=== PATIENT | male | born 1950 | race Caucasian/White ===

== ENCOUNTER → 2016-12-13 | Outpatient (CLI) | payer OTHER ==
[2016-12-13 10:12] LABS: BASO # 0.2 K/mm3 (0.0-0.2); BASO % 2.3 % (0.0-1.0); EOS # 0.4 K/mm3 (0.0-0.50); EOS % 5.1 % (0.0-3.0); LARGE UNSTAINED CELL # 0.2 K/mm3 (0.0-0.4); LARGE UNSTAINED CELL % 2.5 % (0.0-4.0); LYMPH # 3.1 K/mm3 (1.5-4.5); LYMPH % 33.2 % (24.0-44.0); MEAN CORPUSCULAR HEMOGLOBIN 31.6 pg (27.0-33.0); MEAN CORPUSCULAR HGB CONC 33.9 g/dl (32.0-36.5); MEAN CORPUSCULAR VOLUME 93.3 fl (80.0-96.0); MONO # 0.6 K/mm3 (0.0-0.8); MONO % 6.8 % (0.0-5.0); NEUTROPHILS # 4.4 K/mm3 (1.8-7.7); NEUTROPHILS % 50.2 % (36.0-66.0); PLATELET COUNT, AUTOMATED 289 k/mm3 (150-450); RED CELL DISTRIBUTION WIDTH 13.1 % (11.5-14.5); WHITE BLOOD COUNT 8.8 K/mm3 (4.0-10.0)
[2016-12-13 10:34] LABS: ALBUMIN 4.7 GM/DL (3.2-5.2); ALBUMIN/GLOBULIN RATIO 1.74 (1.00-1.93); ALKALINE PHOSPHATASE 111 U/L (45-117); ALT/SGPT 31 U/L (12-78); ANION GAP 8 MEQ/L (8-16); AST/SGOT 20 U/L (15-37); BILIRUBIN,TOTAL 0.5 MG/DL (0.2-1.0); BLOOD UREA NITROGEN 17 MG/DL (7-18); CALCIUM LEVEL 9.4 MG/DL (8.8-10.2); CARBON DIOXIDE LEVEL 24 MEQ/L (21-32); CHLORIDE LEVEL 104 MEQ/L (98-107); CREATININE FOR GFR 0.84 MG/DL (0.70-1.30); GLOMERULAR FILTRATION RATE > 60.0 (>49); GLUCOSE, FASTING 88 MG/DL (80-110); PERCENT SATURATION 39.9 % (19.7-37.4); POTASSIUM SERUM 4.7 MEQ/L (3.5-5.1); SODIUM LEVEL 136 MEQ/L (136-145); TOTAL IRON BINDING CAPACITY 376 UG/DL (250-450); TOTAL PROTEIN 7.4 GM/DL (6.4-8.2)
[2016-12-13 10:36] LABS: ERYTHROCYTE SEDIMENTATION RATE 4 mm/hr (0-20)
[2016-12-13 14:36] LABS: RBC ADVIA BF 0; RBC CALC. BF < 10000 (< 10mm3 cells/uL); WBC ADVIA BF 0.2; WBC CALC. BF 200 cells/uL (0-20)
[2016-12-13 14:37] LABS: BF DIFF IF INDICATED? YES (NO); SYNOVIAL FLUID COLOR PALE YELLOW (YELLOW)
[2016-12-13 15:59] LABS: CC BF DIFF EXAM CYTOCENTRIFUGE; CRYSTALS, BODY FLUID NONE SEEN (NONE SEEN)
--- NOTE | 2016-12-14 03:21 | REP ---
Clinical: Arthritis. Pain. Technique: AP, lateral, bilateral oblique views of the right and left foot. Findings: Age-related osteopenia and degenerative changes are appreciated. Osteoarthritic degenerative changes at the interphalangeal joints including subchondral sclerosis with mild joint space narrowing and marginal spurring (left greater than right). The right first metatarsophalangeal joint demonstrates similar increase sclerosis with marginal spurring and joint space narrowing. The left first metatarsophalangeal joint demonstrates advanced changes including osteophytosis, periarticular calcifications, subchondral sclerosis and moderate joint space obliteration / destructive changes. There is moderate bilateral hammertoe deformity of the second through fourth toes. Age-related hindfoot and midfoot changes noted as well. Impression: Osteoarthritic degenerative changes primarily involving the left first metatarsophalangeal joint and bilateral interphalangeal joints. Signed by Aydin Baugh MD 12/14/2016 03:12 A
--- NOTE | 2016-12-14 03:28 | REP ---
Clinical: Arthritis. Pain. Technique: AP, lateral, bilateral oblique views of the right and left wrist. Findings: Age-related degenerative changes include subtle cortical irregularity with areas of joint space narrowing as well as subtle increase sclerosis along the radiocarpal joint space. No significant periarticular erosive changes, loose bodies, or soft tissue swelling appreciated. Impression: Moderate age-related osteoarthritic changes suggested. Signed by Aydin Baugh MD 12/14/2016 03:19 A
--- NOTE | 2016-12-14 03:32 | REP ---
Clinical: Pain. Technique: Internal rotation, external rotation, and Y view of the left shoulder. Findings: Moderate degenerative changes include cortical irregularity and spurring at the acromioclavicular joint as well as blunting and subtle heterogeneity to the glenoid rim and humeral head. Small periarticular calcifications are identified superior to the glenoid. No acute fracture or dislocation. Impression: Moderate arthritic degenerative changes including calcific tendinopathy suggested. Signed by Aydin Baugh MD 12/14/2016 03:24 A
--- NOTE | 2016-12-14 03:34 | REP ---
Clinical: Pain. Technique: AP and frog lateral views. Findings: Early advanced arthritic degenerative changes include cortical irregularity as well as osteophyte formation involving the femoral head. Underlying increase sclerosis and heterogeneity involving the acetabulum and subchondral femoral head noted as well as subtle spurring along the superior margin of the acetabular rim. No acute fracture or dislocation. No periarticular calcifications. Impression: Early advanced arthritic degenerative changes. Signed by Aydin Baugh MD 12/14/2016 03:25 A
--- NOTE | 2016-12-14 03:37 | REP ---
Clinical: Arthritis. Pain. Technique: AP, lateral, bilateral oblique views of the right and left hand. Findings: Age-related osteopenia is appreciated along with mild relatively symmetric osteoarthritic degenerative changes. Findings include subchondral sclerosis and joint space narrowing involving the interphalangeal joints and most notably at the first interphalangeal joint (right greater than left). Degenerative changes to the first carpometacarpal and metacarpophalangeal joints also appreciated and include increase sclerosis and joint space narrowing with subtle cortical irregularity. Impression: Relatively symmetric mild osteoarthritic degenerative changes noted bilaterally. Signed by Aydin Baugh MD 12/14/2016 03:28 A
--- NOTE | 2016-12-14 03:41 | REP ---
Clinical: Pain. Technique: Single AP weightbearing view to the right and left knee. Findings: Moderate right and early advanced left osteoarthritic degenerative changes are appreciated. Right knee demonstrates medial joint space narrowing with subchondral sclerosis to the tibial surface as well as mild chondrocalcinosis and subtle cortical irregularity to the femoral condyles. Left knee demonstrates subchondral heterogeneity and subtle cystic changes as well as joint space narrowing primarily involving the medial compartment with marginal early osteophyte formation at the lateral femoral condyle and medial / lateral proximal tibia as well as chondrocalcinosis and blunting to the tibial spines. Impression: Moderate right and early advanced left osteoarthritic degenerative changes. Signed by Aydin Baugh MD 12/14/2016 03:32 A
[2016-12-15 00:06] LABS: Lyme Disease IgG/IgM Antibodie <0.91 ISR (0.00-0.90); Lyme Disease IgM Ab Quantitati <0.80 index (0.00-0.79)
== END ==
LOC: M LAB 09:12
PROVIDERS: ATTEND Internal Medicine Rheumatology
DX: M17.0 Bilateral primary osteoarthritis of knee (principal); M16.0 Bilateral primary osteoarthritis of hip; M72.2 Plantar fascial fibromatosis; M35.9 Systemic involvement of connective tissue, unspecified; E83.110 Hereditary hemochromatosis; N18.3 Chronic kidney disease, stage 3 (moderate); Z79.899 Other long term (current) drug therapy; M17.12 Unilateral primary osteoarthritis, left knee

== ENCOUNTER 2017-07-06 07:55 | Outpatient (CLI) | payer OTHER ==
[~2017-07-06] VITALS: Ht 177.8 cm; Wt 79.4 kg
[~2017-07-06 07:55] MED LIST: ALEV220T26 PO; FISH1000 PO; OMEP40CA2 PO
[2017-07-06] MEDS ORDERED: NS 1,000 ML IV ONE (08:30)
[2017-07-06] MEDS ORDERED: LIDOCAINE 2% INJ 100 MG/5 ML SDV (FOR ANES.) As Ordered ONE (08:31)
[2017-07-06] MEDS ORDERED: PROPOFOL 200 MG/20 ML VIAL As Ordered ONE (08:31)
--- NOTE | 2017-07-06 09:20 | ROOR ---
Patient Name: Thomas Marx Procedure Date: 07/06/2017 8:54 AM Date of : 1950 Age: 67 Room: [facility] Gender: Male Note Status: Finalized Procedure: Upper GI endoscopy Indications: Epigastric abdominal pain Providers: Reji Guerrero Jr, MD Referring MD: FREDI IVORY MD Requesting Provider: Medicines: Propofol per Anesthesia Complications: No immediate complications. Procedure: Pre-Anesthesia Assessment: - Prior to the procedure, a History and Physical was performed, and patient medications and allergies were reviewed. The patient is competent. The risks and benefits of the procedure and the sedation options and risks were discussed with the patient. All questions were answered and informed consent was obtained. Patient identification and proposed procedure were verified by the physician and the nurse in the pre-procedure area and in the procedure room. Mental Status Examination: alert and oriented. Airway Examination: normal oropharyngeal airway and neck mobility. Respiratory Examination: clear to auscultation. CV Examination: normal. ASA Grade Assessment: II - A patient with mild systemic disease. After reviewing the risks and benefits, the patient was deemed in satisfactory condition to undergo the procedure. The anesthesia plan was to use moderate sedation / analgesia (conscious sedation). Immediately prior to administration of medications, the patient was re-assessed for adequacy to receive sedatives. The heart rate, respiratory rate, oxygen saturations, blood pressure, adequacy of pulmonary ventilation, and response to care were monitored throughout the procedure. The physical status of the patient was re-assessed after the procedure. The Endoscope was introduced through the mouth, and advanced to the second part of duodenum. The upper GI endoscopy was accomplished without difficulty. The patient tolerated the procedure well. Findings: The upper third of the esophagus, middle third of the esophagus and lower third of the esophagus were normal. Non-severe esophagitis was found at the gastroesophageal junction. Biopsies were taken with a cold forceps for histology. The cardia, gastric fundus and gastric body were normal. Diffuse moderate inflammation characterized by erythema, friability and granularity was found in the gastric antrum and in the prepyloric region of the stomach. Biopsies were taken with a cold forceps for histology. The second portion of the duodenum was normal. Patchy mild inflammation characterized by erythema and friability was found in the duodenal bulb. Impression: - Normal upper third of esophagus, middle third of esophagus and lower third of esophagus. - Non-severe reflux esophagitis. Biopsied. - Normal cardia, gastric fundus and gastric body. - Gastritis. Biopsied. - Normal second portion of the duodenum. - Duodenitis. Recommendation: - Discharge patient to home (ambulatory). - Return to my office in 1 month. Reji Guerrero MD Reji Guerrero Jr, MD 07/06/2017 9:19:40 AM This report has been signed electronically. Number of Addenda: 0 Note Initiated On: 07/06/2017 8:54 AM Estimated Blood Loss: Estimated blood loss: none.
--- NOTE | 2017-07-06 09:22 | ROOR ---
Patient Name: Thomas Marx Procedure Date: 07/06/2017 8:56 AM Date of : 1950 Age: 67 Room: [facility] Gender: Male Note Status: Finalized Procedure: Colonoscopy Indications: High risk colon cancer surveillance: Personal history of colonic polyps Providers: Reji Guerrero Jr, MD Referring MD: FREDI IVORY MD Requesting Provider: Medicines: Propofol per Anesthesia Complications: No immediate complications. Procedure: Pre-Anesthesia Assessment: - Prior to the procedure, a History and Physical was performed, and patient medications and allergies were reviewed. The patient is competent. The risks and benefits of the procedure and the sedation options and risks were discussed with the patient. All questions were answered and informed consent was obtained. Patient identification and proposed procedure were verified by the physician and the nurse in the pre-procedure area and in the procedure room. Mental Status Examination: alert and oriented. Airway Examination: normal oropharyngeal airway and neck mobility. Respiratory Examination: clear to auscultation. CV Examination: normal. ASA Grade Assessment: II - A patient with mild systemic disease. After reviewing the risks and benefits, the patient was deemed in satisfactory condition to undergo the procedure. The anesthesia plan was to use moderate sedation / analgesia (conscious sedation). Immediately prior to administration of medications, the patient was re-assessed for adequacy to receive sedatives. The heart rate, respiratory rate, oxygen saturations, blood pressure, adequacy of pulmonary ventilation, and response to care were monitored throughout the procedure. The physical status of the patient was re-assessed after the procedure. The Colonoscope was introduced through the anus and advanced to the cecum, identified by appendiceal orifice and ileocecal valve. The colonoscopy was performed without difficulty. The patient tolerated the procedure well. The quality of the bowel preparation was adequate and good. Findings: Non-bleeding internal hemorrhoids were found during endoscopy. The hemorrhoids were moderate. Multiple small and large-mouthed diverticula were found in the sigmoid colon. The rectum, recto-sigmoid colon, descending colon, transverse colon, ascending colon, cecum, appendiceal orifice and ileocecal valve appeared normal. Impression: - Non-bleeding internal hemorrhoids. - Diverticulosis in the sigmoid colon. - The rectum, recto-sigmoid colon, descending colon, transverse colon, ascending colon, cecum, appendiceal orifice and ileocecal valve are normal. - No specimens collected. Recommendation: - Discharge patient to home (ambulatory). - Return to my office in 1 month. Reji Guerrero MD Reji Guerrero Jr, MD 07/06/2017 9:21:41 AM This report has been signed electronically. Number of Addenda: 0 Note Initiated On: 07/06/2017 8:56 AM Estimated Blood Loss: Estimated blood loss: none.
[2017-07-06 09:40] VITALS: BP 152/96
== END 2017-07-06 10:02 | disposition home or self-care (01) ==
LOC: M OPP 07:55
PROVIDERS: ATTEND Surgery
DX: Z12.11 Encounter for screening for malignant neoplasm of colon (principal); K64.8 Other hemorrhoids; K57.30 Diverticulosis of large intestine without perforation or abscess without bleeding; Z86.010 Personal history of colon polyps; R10.13 Epigastric pain; K21.0 Gastro-esophageal reflux disease with esophagitis; K29.80 Duodenitis without bleeding; K29.70 Gastritis, unspecified, without bleeding; E78.00 Pure hypercholesterolemia, unspecified; M19.90 Unspecified osteoarthritis, unspecified site; G43.909 Migraine, unspecified, not intractable, without status migrainosus; F17.210 Nicotine dependence, cigarettes, uncomplicated; F12.90 Cannabis use, unspecified, uncomplicated; Z79.899 Other long term (current) drug therapy
CPT/HCPCS: 43239; 88305; G0105

== ENCOUNTER → 2019-07-30 | Outpatient (CLI) | payer MEDICARE ==
[~2019-07-30] MED LIST changes: -OMEP40CA2 PO; +OMEP40CA97 PO
--- NOTE | 2019-07-30 13:02 | REP ---
Left knee five views: The the there is significant joint space narrowing of the medial compartment with osteophyte growth at the medial joint line. There is joint space narrowing of the lateral compartment with osteophytic growth along the lateral joint line. There is chondrocalcinosis. There is mild patellofemoral joint space narrowing with osteophytic growth at the patellofemoral joint line. There is no effusion. There are calcifications in the suprapatellar soft tissues likely calcified synovial chondromas. Impression: Advanced tricompartment osteoarthritis. Chondrocalcinosis suggestive of CPPD. Calcified osteochondroma in the suprapatellar space. Right knee five views: There is chondrocalcinosis. There is moderate joint space narrowing of the medial lateral compartments. There is minimal osteophytic growth at the medial lateral joint lines. There is mild joint space narrowing of the patellofemoral joint with mild osteophytic growth at the joint margin. There is no effusion. Impression: Moderate tricompartment osteoarthritis. Chondrocalcinosis suggestive of CPPD. Electronically Signed by Silverio Gasca MD 07/30/2019 12:54 P
--- NOTE | 2019-07-30 13:04 | REP ---
Bilateral knees, single AP standing views: There is significant joint space narrowing of the left knee medial compartment and moderate joint space narrowing of the left knee lateral compartment. There is moderate joint space narrowing of the right knee medial and lateral compartments. There is bilateral chondrocalcinosis suggestive of CPPD. Electronically Signed by Silverio Gasca MD 07/30/2019 12:55 P
== END ==
LOC: M RAD 11:28
PROVIDERS: ATTEND Internal Medicine Rheumatology
DX: M11.261 Other chondrocalcinosis, right knee (principal); M11.262 Other chondrocalcinosis, left knee; M17.0 Bilateral primary osteoarthritis of knee
CPT/HCPCS: 73564; G0463

== ENCOUNTER → 2021-04-22 | Outpatient (REF) | payer MEDICARE ==
[~2021-04-22] MED LIST changes: +OMEP40CA4 PO; -OMEP40CA97 PO
[2021-04-22 14:14] LABS: APPEARANCE, URINE CLEAR (CLEAR); BACTERIA, URINE AUTO NEGATIVE (NEGATIVE); BILIRUBIN, URINE AUTO NEGATIVE (NEGATIVE); BLOOD, URINE BLOOD NEGATIVE (NEGATIVE); COLOR, URINE YELLOW (YELLOW); GLUCOSE, URINE (UA) AUTO NEGATIVE (NEGATIVE); KETONE, URINE AUTO NEGATIVE (NEGATIVE); LEUKOCYTE ESTERASE, URINE AUTO NEGATIVE (NEGATIVE); NITRITE, URINE AUTO NEGATIVE (NEGATIVE); PROTEIN, URINE AUTO NEGATIVE (NEGATIVE); RBC, URINE AUTO 0 /HPF (0-3); SQUAMOUS EPITHELIAL CELL UR AU 0 /HPF (0-6); UROBILINOGEN, URINE AUTO 0.2 mg/dL (0.0-2.0); WBC, URINE AUTO 1 /HPF (0-3)
== END ==
LOC: M SMT 13:05
PROVIDERS: ATTEND Urology
DX: R31.29 Other microscopic hematuria (principal)
CPT/HCPCS: 81001; 88108; G0463

== ENCOUNTER → 2021-05-07 | Outpatient (CLI) | payer MEDICARE ==
--- NOTE | 2021-05-07 10:23 | REP ---
INDICATION: ATROPHY LEFT KIDNEY. COMPARISON: Comparison CT study June 10, 2015.. TECHNIQUE: Urinary tract sonography. FINDINGS: Scanning at the level of the urinary bladder shows intact bladder shanks. Emptying ureteral jets are confirmed on color Doppler interrogation of the bladder lumen bilaterally. The prostate is enlarged with overall dimensions of 3.6 x 2.6 x 4.8 cm transabdominally. Calculated volume 23 mL.. Renal cortical echogenicity pattern is normal bilaterally and contours are smooth. There is diffuse cortical atrophy of the left kidney. This corresponds with the CT study. There is no evidence of hydronephrosis, cyst, mass, or calculus in either kidney. The right kidney measures 13.1 x 6.3 x 6.7 cm. Left renal dimensions are 9.3 by 4.5 x 4.7 cm. IMPRESSION: There is diffuse atrophy of the left kidney correlating with CT study from 2014. The prostate is somewhat enlarged. Otherwise unremarkable urinary tract ultrasound. <Electronically signed by Erick Matamoros > 05/07/21 [id number]
== END ==
LOC: M RAD 08:46
PROVIDERS: ATTEND Urology
DX: N28.1 Cyst of kidney, acquired (principal)

== ENCOUNTER → 2021-05-28 | Outpatient (REF) | payer MEDICARE ==
[2021-05-28 18:05] LABS: BLOOD UREA NITROGEN 11 MG/DL (7-18); CALCIUM LEVEL 9.4 MG/DL (8.8-10.2); CARBON DIOXIDE LEVEL 25 MEQ/L (21-32); CHLORIDE LEVEL 105 MEQ/L (98-107); CREATININE FOR GFR 0.72 MG/DL (0.70-1.30); GLOMERULAR FILTRATION RATE > 60.0 (>42); GLUCOSE, FASTING 81 MG/DL (70-100); IRON (FE) 137 UG/DL (65-175); POTASSIUM SERUM 4.6 MEQ/L (3.5-5.1); SODIUM LEVEL 136 MEQ/L (136-145); THYROID STIMULATING HORMONE 0.768 uIU/ML (0.358-3.740)
[2021-05-28 18:08] LABS: PTH INTACT 34.4 PG/ML (18.5-88.0); TOTAL 25(OH) VITAMIN D 28.7 NG/ML (30.0-100.0)
== END ==
LOC: M SFHCRHEU 12:05
PROVIDERS: ATTEND Internal Medicine
DX: M11.20 Other chondrocalcinosis, unspecified site (principal); M17.0 Bilateral primary osteoarthritis of knee; M89.9 Disorder of bone, unspecified; M25.559 Pain in unspecified hip; Z79.899 Other long term (current) drug therapy
CPT/HCPCS: 80048; 82306; 83540; 83735; 83970; 84100; 84443; G0463

== ENCOUNTER → 2021-06-01 | Outpatient (CLI) | payer MEDICARE ==
--- NOTE | 2021-06-01 13:36 | REP ---
INDICATION: PAIN IN UNSPECIFIED HIP. COMPARISON: 12/13/2016. TECHNIQUE: Two views right hip. FINDINGS: There is severe arthritic changes of the right hip joint with severe superior joint space narrowing and significant subchondral sclerosis. There is moderate diffuse spurring. There is slight flattening of the superior femoral head. There is no acute fracture or dislocation. IMPRESSION: Severe arthritic changes are similar to the prior exam. <Electronically signed by Silverio Rodriguez > 06/01/21 [id number]
--- NOTE | 2021-06-01 13:38 | REP ---
INDICATION: PAIN IN UNSPECIFIED HIP COMPARISON: None. TECHNIQUE: Four views bilateral ankles. FINDINGS: There is no evidence of acute fracture, dislocation, or intrinsic bone disease.Mild scattered vascular calcifications are seen in the soft tissues bilaterally. The ankle mortise is anatomic bilaterally. There is mild bilateral dorsal navicular spurring. There is mild calcification of the distal Achilles tendon bilaterally. IMPRESSION: No fracture or dislocation. Ankle mortise is anatomic bilaterally. Mild bilateral dorsal navicular spurring and distal Achilles calcification. <Electronically signed by Silverio Rodriguez > 06/01/21 [id number]
--- NOTE | 2021-06-01 13:53 | REP ---
INDICATION: PAIN IN UNSPECIFIED HIP. COMPARISON: Comparison left knee radiographs and right knee radiographs are from July 30, 2019.. TECHNIQUE: Nine views. Bilateral knee series, five views of each knee. FINDINGS: Five views of each knee demonstrate diffuse osteopenia and bilateral vascular calcification. There is chondrocalcinosis in the lateral compartment of each knee. There is advanced osteoarthritis in the medial compartment of the left knee with joint space narrowing, sclerosis and remodeling of the medial compartment. This is similar to the prior study from July 30, 2019. The amount of sclerosis may be slightly increased. There is 3 compartment spurring on the left. On the right knee, there is mild medial compartment narrowing and less prominent spurring is present but this involves all 3 compartments. There is also non articular spurring at the superior pole of the right patella at the quadriceps tendon insertion. This is present to some degree on the left as well.. IMPRESSION: Three compartment osteoarthritis, left more severe than right.. <Electronically signed by Erick Matamoros > 06/01/21 [id number]
== END ==
LOC: M RAD 11:15
PROVIDERS: ATTEND Internal Medicine
DX: M25.559 Pain in unspecified hip (principal); M16.11 Unilateral primary osteoarthritis, right hip; M17.11 Unilateral primary osteoarthritis, right knee

== ENCOUNTER → 2021-06-03 | Outpatient (CLI) | payer MEDICARE ==
--- NOTE | 2021-06-03 11:30 | DEXAMM ---
INDICATION: M89.9 BONE DISORDER. COMPARISON: None. TECHNIQUE: Bone density was measured using dual-energy x-ray absorptionmetry (DEXA). FINDINGS: AP SPINE L1-L4 BMD 1.290 g/cm2 Young Adult T-Score 0.8 Age Matched Z-Score 1.0. LT FEMUR, TOTAL BMD 0.761 g/cm2 Young Adult T-Score -2.0 Age Matched Z-Score 0-1.6. LT NECK BMD 0.713 g/cm2 Young Adult T-Score -2.3 Age Matched Z-Score the -1.4. RT FEMUR, TOTAL BMD 0.845 g/cm2 Young Adult T-Score -1.3 Age Matched Z-Score -1.0. RT NECK BMD 0.871 g/cm2 Young Adult T-Score -1.2 Age Matched Z-Score -0.2. IMPRESSION: There is normal bone density of the spine. There is low bone density of the left hip. There is low bone density of the right hip. FOLLOW-UP: Recommendation for the next bone density exam: 2-5 years. <Electronically signed by Erick Matamoros > 06/03/21 [id number]
== END ==
LOC: M WHC 10:45
PROVIDERS: ATTEND Internal Medicine
DX: M81.0 Age-related osteoporosis without current pathological fracture (principal)

== ENCOUNTER → 2021-07-13 | Outpatient (RCR) | payer MEDICARE | LOC: M PT 07-08 12:09 | PROVIDERS: ATTEND Internal Medicine | DX: M16.9 Osteoarthritis of hip, unspecified (principal); M17.0 Bilateral primary osteoarthritis of knee; M19.079 Primary osteoarthritis, unspecified ankle and foot ==

== ENCOUNTER 2021-08-05 13:45 | Outpatient (RCR) | payer MEDICARE | END 2021-08-12 | LOC: M PT 13:45 | PROVIDERS: ATTEND Internal Medicine | DX: M16.9 Osteoarthritis of hip, unspecified (principal); M17.0 Bilateral primary osteoarthritis of knee; M19.079 Primary osteoarthritis, unspecified ankle and foot ==

== ENCOUNTER → 2022-01-25 | Outpatient (REF) | payer MEDICARE ==
[2022-01-25 17:42] LABS: BLOOD UREA NITROGEN 16 MG/DL (7-18); CALCIUM LEVEL 10.5 MG/DL (8.8-10.2); CARBON DIOXIDE LEVEL 28 MEQ/L (21-32); CHLORIDE LEVEL 107 MEQ/L (98-107); CREATININE FOR GFR 0.86 MG/DL (0.70-1.30); GLOMERULAR FILTRATION RATE > 60.0 (>42); GLUCOSE, FASTING 89 MG/DL (70-100); POTASSIUM SERUM 4.5 MEQ/L (3.5-5.1); SODIUM LEVEL 139 MEQ/L (136-145)
[2022-01-25 17:54] LABS: TOTAL 25(OH) VITAMIN D 48.8 NG/ML (30.0-100.0)
== END ==
LOC: M SFHCRHEU 13:33
PROVIDERS: ATTEND Internal Medicine
DX: M89.9 Disorder of bone, unspecified (principal); E55.9 Vitamin D deficiency, unspecified

== ENCOUNTER → 2022-05-31 | Outpatient (CLI) | payer MEDICARE | LOC: M RAD 11:35 | PROVIDERS: ATTEND Internal Medicine | DX: M17.0 Bilateral primary osteoarthritis of knee (principal); M11.261 Other chondrocalcinosis, right knee; M11.262 Other chondrocalcinosis, left knee ==

== ENCOUNTER → 2022-06-06 | Outpatient (CLI) | payer MEDICARE ==
[2022-06-06 19:03] LABS: BASO # 0.1 10^3/uL (0.0-0.2); BASO % 0.9 % (0.0-1.0); EOS # 0.2 10^3/uL (0.0-0.5); EOS % 1.5 % (0.0-3.0); HEMATOCRIT 43.9 % (42.0-52.0); HEMOGLOBIN 15.4 g/dl (13.5-17.5); LYMPH # 3.5 10^3/uL (1.5-5.0); LYMPH % 31.5 % (24.0-44.0); MEAN CORPUSCULAR HEMOGLOBIN 32.1 pg (27.0-33.0); MEAN CORPUSCULAR HGB CONC 35.1 g/dl (32.0-36.5); MEAN CORPUSCULAR VOLUME 91.5 fl (80.0-96.0); MONO # 0.9 10^3/uL (0.0-0.8); MONO % 7.7 % (2.0-8.0); NEUTROPHILS # 6.5 10^3/uL (1.5-8.5); NEUTROPHILS % 58.2 % (36.0-66.0); PLATELET COUNT, AUTOMATED 305 10^3/uL (150-450); WHITE BLOOD COUNT 11.2 10^3/uL (4.0-10.0)
[2022-06-06 19:05] LABS: INR 0.99; PROTHROMBIN TIME 13.5 SECONDS (12.7-14.5)
== END ==
LOC: M EKG 17:25
PROVIDERS: ATTEND Orthopaedic Surgery
DX: M16.11 Unilateral primary osteoarthritis, right hip (principal); Z79.899 Other long term (current) drug therapy

== ENCOUNTER → 2022-07-28 | Outpatient (CLI) | payer MEDICARE ==
[~2022-07-28] MED LIST changes: +ALEN70TA82 PO; +CIDA500T2 PO; +CINN500C15 PO; +CVS500CA5 PO; +D3 H400T PO; +GARL500C2 PO; +GINS100C PO; +HYDR-4571 PO; +IBUP200T46 PO; +RA N220C PO; +RA T500C2 PO; +RED600TA PO
== END ==
LOC: M LABSMTC 09:09
PROVIDERS: ATTEND Anesthesiology
DX: Z01.818 Encounter for other preprocedural examination (principal); Z11.52 Encounter for screening for COVID-19

== ENCOUNTER 2022-08-02 06:20 | Day surgery (SDC) | payer MEDICARE ==
[~2022-08-02] VITALS: Ht 172.7 cm; Wt 68.0 kg
[2022-08-02] MEDS ORDERED: LR 1,000 ML IV SCH (06:35)
[2022-08-02] MEDS ORDERED: ceFAZolin SOD 1 GM in D5W MINI-BAG PLUS 50 ML IV ONE (07:00)
[2022-08-02] MEDS ORDERED: MIDAZOLAM INJ 2MG/2ML VIAL (J2250 PER 1MG) As Ordered ONE (07:10)
[2022-08-02] MEDS ORDERED: BUPIVACAINE HCL 0.25% 30ML VIAL As Ordered ONE (07:11)
[2022-08-02] MEDS ORDERED: propofoL 200 MG/20 ML VIAL As Ordered ONE (07:12)
[2022-08-02] MEDS ORDERED: dexameTHASONE 4 MG/ML 1ML VIAL (J1100 PER 1MG) As Ordered ONE (07:16)
[2022-08-02] MEDS ORDERED: LIDOCAINE 2% 100MG/5ML SDV (FOR ANES.) As Ordered ONE (07:16)
[2022-08-02] MEDS ORDERED: ONDANSETRON 4MG 2ML VIAL As Ordered ONE (07:17)
[2022-08-02] MEDS ORDERED: fentaNYL 100 MCG/2 ML INJECTION As Ordered ONE (07:33)
[2022-08-02] MEDS ORDERED: LIDOCAINE W/EPINEPHRINE 1% 20ML VIAL As Ordered ONE (07:46)
[2022-08-02] MEDS ORDERED: ePHEDrine SULFATE 25 MG/5 ML(5MG/ML) SYRINGE As Ordered ONE (07:59)
[2022-08-02 08:30] VITALS: BP 122/64
[2022-08-02] MEDS ORDERED: NS 1,000 ML IV SCH (08:30)
[2022-08-02] MEDS ORDERED: KETOROLAC 30 MG/ML 1ML VIAL IV ONE (08:35)
[2022-08-03] MEDS ORDERED: UNRESOLVED CLARIFICATION ENTRY XX SCH (00:01)
== END 2022-08-02 08:41 | disposition home or self-care (01) ==
LOC: M SDC 06:20
PROVIDERS: ATTEND Surgery
DX: L72.0 Epidermal cyst (principal); M19.90 Unspecified osteoarthritis, unspecified site; G43.909 Migraine, unspecified, not intractable, without status migrainosus; M54.9 Dorsalgia, unspecified; Z91.040 Latex allergy status; Z79.899 Other long term (current) drug therapy
CPT/HCPCS: 11422; 12041; 88305; J0690; J1100; J2250; J2405; J3010

== ENCOUNTER → 2022-12-06 | Outpatient (REF) | payer MEDICARE ==
[2022-12-06 17:38] LABS: TOTAL 25(OH) VITAMIN D 47.8 NG/ML (20.0-100.0)
[2022-12-06 17:39] LABS: BLOOD UREA NITROGEN 18 MG/DL (9-23); CALCIUM LEVEL 10.2 MG/DL (8.3-10.6); CARBON DIOXIDE LEVEL 25 MMOL/L (20-31); CHLORIDE LEVEL 107 MMOL/L (98-107); CREATININE FOR GFR 0.78 MG/DL (0.70-1.30); GLOMERULAR FILTRATION RATE > 60.0 (>42); GLUCOSE, FASTING 83 MG/DL (74-106); POTASSIUM SERUM 4.6 MMOL/L (3.5-5.1); SODIUM LEVEL 138 MMOL/L (136-145)
== END ==
LOC: M SFHCRHEU 13:08
PROVIDERS: ATTEND Internal Medicine
DX: M89.9 Disorder of bone, unspecified (principal)

== ENCOUNTER → 2024-02-22 | Outpatient (REF) | payer MEDICARE ==
[2024-02-22 16:33] LABS: BASO # 0.1 10^3/uL (0.0-0.2); BASO % 1.1 % (0.0-1.0); EOS # 0.3 10^3/uL (0.0-0.5); EOS % 3.7 % (0.0-3.0); HEMATOCRIT 42.9 % (42.0-52.0); HEMOGLOBIN 14.7 g/dl (13.5-17.5); LYMPH # 4.1 10^3/uL (1.5-5.0); LYMPH % 44.7 % (24.0-44.0); MEAN CORPUSCULAR HEMOGLOBIN 31.8 pg (27.0-33.0); MEAN CORPUSCULAR HGB CONC 34.3 g/dl (32.0-36.5); MEAN CORPUSCULAR VOLUME 92.9 fl (80.0-96.0); MONO # 0.8 10^3/uL (0.0-0.8); MONO % 8.5 % (2.0-8.0); NEUTROPHILS # 3.8 10^3/uL (1.5-8.5); NEUTROPHILS % 41.8 % (36.0-66.0); PLATELET COUNT, AUTOMATED 304 10^3/uL (150-450); RED BLOOD COUNT 4.62 10^6/uL (4.30-6.10); WHITE BLOOD COUNT 9.1 10^3/uL (4.0-10.0)
[2024-02-22 17:02] LABS: TOTAL 25(OH) VITAMIN D 44.2 NG/ML (20.0-100.0)
[2024-02-22 17:03] LABS: ALBUMIN 4.1 G/DL (3.2-5.2); ALKALINE PHOSPHATASE 75 U/L (46-116); ALT/SGPT 24 U/L (7.0-40); AST/SGOT 15 U/L (<34); BILIRUBIN,DIRECT 0.1 MG/DL (<0.4); BILIRUBIN,TOTAL 0.4 MG/DL (0.3-1.2); BLOOD UREA NITROGEN 14 MG/DL (9-23); CARBON DIOXIDE LEVEL 27 MMOL/L (20-31); CHLORIDE LEVEL 109 MMOL/L (98-107); CREATININE FOR GFR 0.75 MG/DL (0.70-1.30); GLOMERULAR FILTRATION RATE > 60.0 (>42); GLUCOSE, FASTING 89 MG/DL (74-106); POTASSIUM SERUM 4.8 MMOL/L (3.5-5.1); SODIUM LEVEL 140 MMOL/L (136-145); TOTAL PROTEIN 6.8 G/DL (5.7-8.2)
== END ==
LOC: M SFHCRHEU 11:31
PROVIDERS: ATTEND Internal Medicine
DX: E55.9 Vitamin D deficiency, unspecified (principal); Z79.1 Long term (current) use of non-steroidal anti-inflammatories (NSAID)

== ENCOUNTER → 2025-02-24 | Outpatient (CLI) | payer MEDICARE ==
[~2025-02-24] MED LIST changes: -GARL500C2 PO; +GARL500C6 PO
== END ==
LOC: M WHC 09:48
PROVIDERS: ATTEND Internal Medicine
DX: M81.0 Age-related osteoporosis without current pathological fracture (principal)

== ENCOUNTER → 2025-08-08 | Outpatient (CLI) | payer MEDICARE ==
[~2025-08-08] MED LIST changes: -RA T500C2 PO; +TURM500C10 PO
== END ==
LOC: M RAD 10:18
PROVIDERS: ATTEND Internal Medicine
DX: M19.071 Primary osteoarthritis, right ankle and foot (principal); M19.072 Primary osteoarthritis, left ankle and foot; M79.641 Pain in right hand; M79.642 Pain in left hand

== ENCOUNTER → 2025-10-21 | Outpatient (REF) | payer MEDICARE ==
[~2025-10-21] MED LIST changes: -RA N220C PO; +[UNRECOGNIZED DRUG - CODE] PO
[2025-10-21 16:04] LABS: BASO # 0.1 10^3/uL (0.0-0.2); BASO % 0.7 % (0.0-1.0); EOS # 0.1 10^3/uL (0.0-0.5); EOS % 0.7 % (0.0-3.0); LYMPH # 3.5 10^3/uL (1.5-5.0); LYMPH % 32.6 % (24.0-44.0); MONO # 0.7 10^3/uL (0.0-0.8); MONO % 6.7 % (2.0-8.0); NEUTROPHILS # 6.4 10^3/uL (1.5-8.5); NEUTROPHILS % 59.0 % (36.0-66.0); PLATELET COUNT, AUTOMATED 331 10^3/uL (150-450)
[2025-10-21 16:08] LABS: ALT/SGPT 22.0 U/L (7.0-40); AST/SGOT 18.0 U/L (<34); CALCIUM LEVEL 10.8 MG/DL (8.3-10.6); CARBON DIOXIDE LEVEL 29.0 MMOL/L (20-31); CHLORIDE LEVEL 104.0 MMOL/L (98-107); CREATININE FOR GFR 0.86 MG/DL (0.70-1.30); GLOMERULAR FILTRATION RATE 89.2 (>42); MAGNESIUM LEVEL 2.2 MG/DL (1.8-2.4); PHOSPHORUS LEVEL 3.7 MG/DL (2.4-5.1); POTASSIUM SERUM 5.4 MMOL/L (3.5-5.1); SODIUM LEVEL 139.0 MMOL/L (136-145)
[2025-10-21 16:09] LABS: TOTAL 25(OH) VITAMIN D 61.1 NG/ML (20.0-100.0)
== END ==
LOC: M SFHCRHEU 12:53
PROVIDERS: ATTEND Internal Medicine
DX: M89.9 Disorder of bone, unspecified (principal); E55.9 Vitamin D deficiency, unspecified; Z79.1 Long term (current) use of non-steroidal anti-inflammatories (NSAID)